=== PATIENT | male | born 1965 | race Caucasian/White ===

== ENCOUNTER 2022-06-09 11:41 | Emergency (ER) | payer SELFPAY ==
[~2022-06-09] VITALS: Ht 162.6 cm; Wt 65.8 kg
[2022-06-09] MEDS ORDERED: ACETAMINOPHEN 325 MG TABLET PO ONE (12:15)
[2022-06-09] MEDS ORDERED: ACETAMINOPHEN 325 MG TABLET ONE (12:22)
--- NOTE | 2022-06-09 12:30 | NUR ---
Gave pt d/c instructions, pt verbalized understanding.
== END 2022-06-09 12:34 | disposition home or self-care (01) ==
LOC: ER 11:41
DX: S09.90XA Unspecified injury of head, initial encounter (principal); W01.0XXA Fall on same level from slipping, tripping and stumbling without subsequent striking against object, initial encounter; Y93.89 Activity, other specified; Y92.512 Supermarket, store or market as the place of occurrence of the external cause; R03.0 Elevated blood-pressure reading, without diagnosis of hypertension
CPT/HCPCS: A4663